=== PATIENT | female | born 1935 | race Caucasian/White ===

== ENCOUNTER 2021-09-24 08:53 | Emergency (ER) | payer OTHER ==
[~2021-09-24] VITALS: Ht 160 cm; Wt 61.7 kg
[~2021-09-24 08:53] MED LIST: LEVO75TA7 PO; LISI-221 PO; LOVA40TA PO
[2021-09-24 09:06] VITALS: BP_SYST 98
--- NOTE | 2021-09-24 09:12 | NUR ---
AMBULATED TO BED 8
--- NOTE | 2021-09-24 09:15 | NUR ---
PT BIB DAUGHTER FROM HOME C/O BURNING WITH URINATION, PT HAS HX OF UTI AND REQUESTING TX. PT IS AMBULATORY, AAOX4, V/S STABLE
--- NOTE | 2021-09-24 09:20 | NUR ---
ER AT THE BEDSIDE EXAMINING PT
[2021-09-24] MEDS ORDERED: NITROFURANTOIN MONOHYD/M-CRYST 100 MG CAPSULE (MacroBID) PO ONE (09:45)
[2021-09-24 09:48] VITALS: BP_SYST 98
--- NOTE | 2021-09-24 10:06 | NUR ---
Patient given written and verbal discharge instructions and verbalizes understanding. ER MD discussed with patient the results and treatment provided. Patient in stable condition. ID arm band removed. Rx of PYRIDIUM AND MACROBID given. Patient educated on pain management and to follow up with PMD. Pain Scale 0/10. Opportunity for questions provided and answered. Medication side effect fact sheet provided.
[2021-09-24 10:30] LABS: BILIRUBIN,URINE NEGATIVE (NEGATIVE); BLOOD, URINE 2+ (NEGATIVE); CLARITY/URINE CLOUDY (CLEAR); COLOR,URINE YELLOW (YELLOW); GLUCOSE,URINE NEGATIVE (NEGATIVE); KETONES,URINE NEGATIVE (NEGATIVE); LEUKOCYTE ESTERASE ,URINE 3+ (NEGATIVE); NITRITE, URINE POSITIVE (NEGATIVE); PROTEIN URINE 2+ (NEGATIVE); UROBILINOGEN,URINE 0.2 (0.2-1.0)
[2021-09-24 11:32] LABS: BACTERIA,URINE FEW /HPF (None Seen); WBC,URINE >100 /HPF (0-3)
[2021-09-25] MEDS ORDERED: CARV12.548 PO (06:35)
== END 2021-09-24 09:48 | disposition home or self-care (01) ==
LOC: SED 08:53
DX: N39.0 Urinary tract infection, site not specified (principal); I10 Essential (primary) hypertension; Z79.899 Other long term (current) drug therapy
CPT/HCPCS: 81000; 87086; 99283

== ENCOUNTER 2021-09-24 17:51 | Inpatient (IN) | payer OTHER, SELFPAY ==
[~2021-09-24] VITALS: Ht 160 cm; Wt 63.0 kg
[2021-09-24 18:32] VITALS: BP_SYST 131
[2021-09-24] MEDS ORDERED: cefTRIAXone 1 GM in D5W 50 ML IV ONE (19:00)
[2021-09-24] MEDS ORDERED: NACL 0.9% 1,000 ML IV ONE (19:00)
[2021-09-24 19:23] LABS: BASOPHILS % (AUTO) 0.1 % (0.0-2.0); HEMATOCRIT 35.3 % (36-48); HEMOGLOBIN 11.8 g/dL (12.0-16.0); LYMPHOCYTES # (AUTO) 0.4 K/uL (1.0-5.5); LYMPHOCYTES % (AUTO) 1.9 % (20.5-51.5); MEAN CORPUSCULAR HEMOGLOBIN 29 pg (27-31); MEAN CORPUSCULAR HGB CONC 34 % (32-36); MEAN CORPUSCULAR VOLUME 86 fL (79.0-98.0); MONOCYTES # (AUTO) 0.3 K/uL (0.0-1.0); MONOCYTES % (AUTO) 1.7 % (1.7-9.3); NEUTROPHILS # (AUTO) 17.9 K/uL (1.8-7.7); NEUTROPHILS % (AUTO) 96.3 % (40.0-70.0); PLATELET COUNT (AUTO) 263 K/uL (130-430); RED BLOOD CELL COUNT(AUTO) 4.13 MIL/uL (4.2-6.2); RED CELL DISTRIBUTION WIDTH 13.9 % (9.0-15.0); WHITE BLOOD COUNT (AUTO) 18.6 K/uL (4.8-10.8)
[2021-09-24 19:29] LABS: ANION GAP 9 (5-15); CHLORIDE 97 mmol/L (98-107); CREATININE 1.07 mg/dL (0.55-1.30); GLUCOSE 108 mg/dL (70-99); POTASSIUM 3.9 mmol/L (3.5-5.1); SODIUM SERUM 132 mmol/L (136-145); UREA NITROGEN, BLOOD 21 mg/dL (8-21)
[2021-09-24 19:33] LABS: INR 1.1 (0.8-1.2); PROTHROMBIN TIME 11.2 SECS (9.5-12.5)
[2021-09-24 19:35] LABS: ALANINE AMINOTRANSFERASE 19 U/L (12-78); ALBUMIN 2.8 g/dL (3.4-4.8); ASPARTATE AMINOTRANSFERASE 24 U/L (10-37); TOTAL BILIRUBIN 0.7 mg/dL (0.0-1.0)
[2021-09-24 19:43] LABS: ALCOHOL, BLOOD < 3 mg/dL (<10)
[2021-09-24] MEDS ORDERED: NS 500 ML IV ONE (19:45)
[2021-09-24] MEDS ORDERED: cefTRIAXone 1 GM VIAL ONE (19:54)
[2021-09-24] MEDS ORDERED: ASPIRIN 325 MG TABLET PO ONE (20:00)
[2021-09-24] MEDS ORDERED: HYDROcodone/ACETAMIN 7.5-325 MG TAB PO PRN (21:15)
[2021-09-24] MEDS ORDERED: ONDANSETRON HCL 4 MG/2 ML VIAL IVP PRN (21:15)
[2021-09-24] MEDS ORDERED: HYDROmorphone 2 MG/ML VIAL IVP PRN (21:15)
[2021-09-24 23:21] VITALS: BP_SYST 127
[2021-09-25 00:27] VITALS: BP_SYST 127
[2021-09-25] MEDS: NACL 0.9% 1,000 ML IV SCH ×5 (06:09→18:28)
[2021-09-25] MEDS ORDERED: CARV12.548 PO (06:35)
[2021-09-25 06:37] LABS: HEMATOCRIT 33.2 % (36-48); HEMOGLOBIN 10.8 g/dL (12.0-16.0); MEAN CORPUSCULAR HEMOGLOBIN 28 pg (27-31); MEAN CORPUSCULAR HGB CONC 33 % (32-36); MEAN CORPUSCULAR VOLUME 85 fL (79.0-98.0); PLATELET COUNT (AUTO) 252 K/uL (130-430); RED CELL DISTRIBUTION WIDTH 13.9 % (9.0-15.0); WHITE BLOOD COUNT (AUTO) 28.2 K/uL (4.8-10.8)
[2021-09-25] MEDS ORDERED: LEVOTHYROXINE SODIUM 0.075 MG TABLET PO SCH (06:45)
[2021-09-25 07:28] LABS: ALANINE AMINOTRANSFERASE 18 U/L (12-78); ALBUMIN 2.4 g/dL (3.4-4.8); ANION GAP 8 (5-15); ASPARTATE AMINOTRANSFERASE 15 U/L (10-37); CALCIUM 8.7 mg/dL (8.4-11.0); CHLORIDE 102 mmol/L (98-107); GLUCOSE 105 mg/dL (70-99); POTASSIUM 3.5 mmol/L (3.5-5.1); SODIUM SERUM 136 mmol/L (136-145); UREA NITROGEN, BLOOD 21 mg/dL (8-21)
[2021-09-25 08:00] VITALS: BP_SYST 108
[2021-09-25] MEDS: ASPIRIN 81 MG TAB.CHEW PO SCH (08:45)
[2021-09-25] MEDS: CARVEDILOL 12.5 MG TABLET (COREG) PO SCH ×2 (08:45→21:00)
[2021-09-25 08:57] LABS: TOTAL BILIRUBIN 0.3 mg/dL (0.0-1.0)
[2021-09-25 10:26] LABS: FREE T4 (FREE THYROXINE) 1.6 ng/dl (0.8-1.5); THYROID STIMULATING HORMONE 0.38 uIu/mL (0.36-3.74)
[2021-09-25 12:00] VITALS: BP_SYST 116
[2021-09-25 12:14] LABS: BAND % (MANUAL) 16 % (0-6); EOSINOPHILS % (MANUAL) 7 % (0-7); LYMPHOCYTES % (MANUAL) 11 % (20-46); MONOCYTES % (MANUAL) 11 % (0-11)
[2021-09-25 12:15] LABS: BASOPHILS % (MANUAL) 0 % (0-2)
[2021-09-25 13:34] LABS: BILIRUBIN,URINE NEGATIVE (NEGATIVE); CLARITY/URINE CLEAR (CLEAR); GLUCOSE,URINE TRACE (NEGATIVE); KETONES,URINE NEGATIVE (NEGATIVE); LEUKOCYTE ESTERASE ,URINE 1+ (NEGATIVE); NITRITE, URINE POSITIVE (NEGATIVE); PH,URINE 5.5 (5.0-8.0); PROTEIN URINE 1+ (NEGATIVE)
[2021-09-25 14:35] LABS: BLOOD, URINE TRACE (NEGATIVE); COLOR,URINE AMBER (YELLOW)
[2021-09-25 14:37] LABS: BACTERIA,URINE RARE /HPF (None Seen)
[2021-09-25 16:00] VITALS: BP_SYST 114
[2021-09-25 20:00] VITALS: BP_SYST 100
[2021-09-25] MEDS ORDERED: cefTRIAXone 1 GM IVPB PREMIX 50 ML IV ONE (21:24)
[2021-09-25] MEDS: cefTRIAXone 1 GM IVPB PREMIX 50 ML IV SCH (21:38)
[2021-09-26 01:28] VITALS: BP_SYST 133
[2021-09-26] MEDS: NACL 0.9% 1,000 ML IV SCH ×4 (03:37→23:16)
[2021-09-26] MEDS: LEVOTHYROXINE SODIUM 0.075 MG TABLET PO SCH (05:32)
[2021-09-26 08:00] VITALS: BP_SYST 139
[2021-09-26] MEDS ORDERED: LEVOTHYROXINE SODIUM 0.075 MG TABLET PO SCH (09:00)
[2021-09-26] MEDS: CARVEDILOL 12.5 MG TABLET (COREG) PO SCH ×2 (09:05→20:46)
[2021-09-26] MEDS: ASPIRIN 81 MG TAB.CHEW PO SCH (09:05)
[2021-09-26 09:44] LABS: BASOPHILS % (AUTO) 0.3 % (0.0-2.0); EOSINOPHILS # (AUTO) 0.3 K/uL (0.0-0.4); HEMATOCRIT 31.5 % (36-48); HEMOGLOBIN 10.5 g/dL (12.0-16.0); LYMPHOCYTES # (AUTO) 0.8 K/uL (1.0-5.5); LYMPHOCYTES % (AUTO) 5.7 % (20.5-51.5); MEAN CORPUSCULAR HEMOGLOBIN 29 pg (27-31); MEAN CORPUSCULAR HGB CONC 33 % (32-36); MEAN CORPUSCULAR VOLUME 86 fL (79.0-98.0); PLATELET COUNT (AUTO) 248 K/uL (130-430); RED BLOOD CELL COUNT(AUTO) 3.68 MIL/uL (4.2-6.2); RED CELL DISTRIBUTION WIDTH 14.2 % (9.0-15.0); WHITE BLOOD COUNT (AUTO) 14.1 K/uL (4.8-10.8)
[2021-09-26 12:39] VITALS: BP_SYST 136
[2021-09-26 16:00] VITALS: BP_SYST 138
[2021-09-26] MEDS ORDERED: IPRATROPIUM/ALBUTEROL SULFATE 3 ML AMPUL.NEB (DUONEB) INH PRN (16:00)
[2021-09-26 20:00] VITALS: BP_SYST 137
[2021-09-26] MEDS ORDERED: cefTRIAXone 1 GM IVPB PREMIX 50 ML IV ONE (20:47)
[2021-09-26] MEDS: cefTRIAXone 1 GM IVPB PREMIX 50 ML IV SCH (21:05)
[2021-09-27 00:44] VITALS: BP_SYST 149
[2021-09-27 04:00] VITALS: BP_SYST 149
[2021-09-27 06:42] LABS: BASOPHILS # (AUTO) 0.1 K/uL (0.0-0.2); BASOPHILS % (AUTO) 0.5 % (0.0-2.0); EOSINOPHILS # (AUTO) 0.4 K/uL (0.0-0.4); HEMATOCRIT 30.6 % (36-48); HEMOGLOBIN 10.2 g/dL (12.0-16.0); LYMPHOCYTES # (AUTO) 1.2 K/uL (1.0-5.5); LYMPHOCYTES % (AUTO) 9.8 % (20.5-51.5); MEAN CORPUSCULAR HEMOGLOBIN 28 pg (27-31); MEAN CORPUSCULAR HGB CONC 33 % (32-36); MEAN CORPUSCULAR VOLUME 85 fL (79.0-98.0); MONOCYTES # (AUTO) 1.1 K/uL (0.0-1.0); MONOCYTES % (AUTO) 9.6 % (1.7-9.3); NEUTROPHILS # (AUTO) 9.2 K/uL (1.8-7.7); NEUTROPHILS % (AUTO) 77.1 % (40.0-70.0); PLATELET COUNT (AUTO) 249 K/uL (130-430); RED BLOOD CELL COUNT(AUTO) 3.59 MIL/uL (4.2-6.2); WHITE BLOOD COUNT (AUTO) 11.9 K/uL (4.8-10.8)
[2021-09-27 07:00] LABS: ALANINE AMINOTRANSFERASE 17 U/L (12-78); ALBUMIN 2.2 g/dL (3.4-4.8); ANION GAP 7 (5-15); ASPARTATE AMINOTRANSFERASE 16 U/L (10-37); CALCIUM 8.4 mg/dL (8.4-11.0); CHLORIDE 107 mmol/L (98-107); CREATININE 0.67 mg/dL (0.55-1.30); GLUCOSE 87 mg/dL (70-99); POTASSIUM 3.4 mmol/L (3.5-5.1); SODIUM SERUM 141 mmol/L (136-145); TOTAL BILIRUBIN 0.1 mg/dL (0.0-1.0); UREA NITROGEN, BLOOD 11 mg/dL (8-21)
[2021-09-27] MEDS: LEVOTHYROXINE SODIUM 0.075 MG TABLET PO SCH (07:11)
[2021-09-27 08:00] VITALS: BP_SYST 172
[2021-09-27] MEDS: ASPIRIN 81 MG TAB.CHEW PO SCH (08:25)
[2021-09-27] MEDS: CARVEDILOL 12.5 MG TABLET (COREG) PO SCH (08:26)
[2021-09-27] MEDS ORDERED: LEVO500T89 PO (09:43)
[2021-09-27 10:10] VITALS: BP_SYST 123
== END 2021-09-27 10:55 | disposition home or self-care (01) | DRG 871 ==
LOC: SED 17:51 → STU 21:08
PROVIDERS: ADMIT Family Medicine; ATTEND Internal Medicine Hospice and Palliative Medicine
DX: A41.9 Sepsis, unspecified organism (principal); E43 Unspecified severe protein-calorie malnutrition; J18.9 Pneumonia, unspecified organism; I21.A1 Myocardial infarction type 2; N39.0 Urinary tract infection, site not specified; J44.1 Chronic obstructive pulmonary disease with (acute) exacerbation; E11.9 Type 2 diabetes mellitus without complications; Z20.822 Contact with and (suspected) exposure to COVID-19; E78.5 Hyperlipidemia, unspecified; I10 Essential (primary) hypertension; B96.20 Unspecified Escherichia coli [E. coli] as the cause of diseases classified elsewhere; Z87.440 Personal history of urinary (tract) infections; Z87.891 Personal history of nicotine dependence; Z79.890 Hormone replacement therapy; Z79.899 Other long term (current) drug therapy; I25.2 Old myocardial infarction; Z68.24 Body mass index [BMI] 24.0-24.9, adult
CPT/HCPCS: 36415; 70450-TC; 71045; 76376; 80053; 81000; 83605; 84439; 84443; 84484; 85007; 85025; 85027; 85610-TC; 85730-TC; 87040-TC; 93005; 93306; 94640; 96365; 99285; G0378; G0482; J0696; J2405